=== PATIENT | female | born 1995 | race African-American/Black ===

== ENCOUNTER → 2025-04-05 | Outpatient (REF) | payer OTHER | LOC: M SFHCWAGY 10:08 | PROVIDERS: ATTEND Obstetrics & Gynecology | DX: Z34.03 Encounter for supervision of normal first pregnancy, third trimester (principal); Z3A.36 36 weeks gestation of pregnancy; Z14.8 Genetic carrier of other disease ==

== ENCOUNTER → 2025-07-24 | Outpatient (REF) | payer OTHER ==
[~2025-07-24] MED LIST: ACET-683 PO; IBUP80TA PO; PREN1TAB11 PO
== END ==
LOC: M PLALAB 14:34
PROVIDERS: ATTEND Advanced Practice Midwife
DX: R87.612 Low grade squamous intraepithelial lesion on cytologic smear of cervix (LGSIL) (principal)